=== PATIENT | male | born 1945 | race African-American/Black ===

== ENCOUNTER 2019-03-03 07:44 | Day surgery (SDC) | payer MEDICARE, MEDICAID ==
[~2019-03-03 07:44] MED LIST: ACETAMINOPHEN 500 MG TABLET PO ONE; CEFAZOLIN 2 Gram 2 GM/50 ML BAG IVPB ONE; CELECOXIB 100 MG CAPSULE PO ONE; FAMOTIDINE 20MG TABLET PO ONE; METOCLOPRAMIDE 10 MG TABLET PO ONE; SCOPOLAMINE 1 PATCH TDSY TD ONE; VANCOMYCIN 1GM/200ML PREMIX 1 GM/200 ML PIGGYBACK IVPB ONE
[2019-03-03] MEDS ORDERED: PHENYLEPHRINE HCL 10 MG/ML VIAL IVP ONE (07:45)
[2019-03-03] MEDS ORDERED: MIDAZOLAM HCL 2MG/2ML VIAL IV ONE (07:45)
[2019-03-03] MEDS ORDERED: HYDROMORPHONE HCL 2 MG/ML VIAL IV ONE (07:45)
[2019-03-03] MEDS ORDERED: LIDOCAINE 2% MDV (20MG/ML) 20ML VIAL IV ONE (07:45)
[2019-03-03] MEDS ORDERED: PROPOFOL 10 MG/ML VIAL IV ONE (07:45)
[2019-03-03] MEDS ORDERED: DEXAMETHASONE 4 MG/ML 1ML VIAL IVP ONE (07:45)
[2019-03-03] MEDS ORDERED: ROPIVACAINE HCL (NAROPIN) /PF 5MG/ML 20ML VIAL IV ONE (07:45)
[2019-03-03] MEDS ORDERED: ZOLPIDEM TARTRATE 5 MG TABLET PO PRN (08:28)
[2019-03-03] MEDS ORDERED: BISACODYL 10 MG SUPP RC PRN (08:28)
[2019-03-03] MEDS ORDERED: METOCLOPRAMIDE HCL 10 MG/2 ML VIAL IVP PRN (08:28)
[2019-03-03] MEDS ORDERED: ACETAMINOPHEN W/ CODEINE 300MG/30MG TABLET PO PRN ×2 (08:28)
[2019-03-03] MEDS ORDERED: KETOROLAC 30 MG/ML VIAL IVP PRN (08:28)
[2019-03-03] MEDS ORDERED: ACETAMINOPHEN 325 MG TAB PO PRN (08:28)
[2019-03-03] MEDS ORDERED: ONDANSETRON HCL IV 4 MG/2 ML VIAL IVP PRN (08:28)
[2019-03-03] MEDS ORDERED: DIPHENHYDRAMINE HCL 25 MG CAPSULE PO PRN (08:28)
[2019-03-03] MEDS ORDERED: HYDROCODONE/APAP 5/325MG TABLET PO PRN ×2 (08:28)
[2019-03-03] MEDS ORDERED: AL HYDROX/MAG HYDROX 30ML UD PO PRN (08:28)
[2019-03-03] MEDS ORDERED: ACETAMINOPHEN W/ CODEINE 300MG/60MG TABLET PO PRN (08:28)
[2019-03-03] MEDS ORDERED: TRAMADOL HCL 50 MG TABLET PO PRN ×2 (08:28)
[2019-03-03] MEDS ORDERED: HYDROMORPHONE HCL 2 MG/ML VIAL IM PRN (08:28)
[2019-03-03] MEDS ORDERED: PROMETHAZINE HCL 12.5 MG in 0.9 % SODIUM CHLORIDE 100ML 50 ML IVPB PRN (08:28)
[2019-03-03] MEDS ORDERED: NALOXONE 0.4 MG/1 ML VIAL IVP PRN (08:28)
[2019-03-03] MEDS ORDERED: MAGNESIUM HYDROXIDE 30 ML UDC PO PRN (08:28)
[2019-03-03 08:45] LABS: ABO GROUP O; ANTIBODY SCREEN NEGATIVE (NEGATIVE); RH TYPE POSITIVE
[2019-03-03] MEDS ORDERED: 0.9 % SODIUM CHLORIDE 1000ML 1,000 ML IV ONE (08:45)
[2019-03-03] MEDS ORDERED: BUPIVACAINE 0.5% W/EPI MPF 30 ML VIAL SQ ONE (11:04)
[2019-03-03] MEDS ORDERED: BUPIVACAINE LIPOSOME 266MG/20ML VIAL SQ ONE (11:04)
[2019-03-03] MEDS ORDERED: TRANEXAMIC ACID 1,000 MG/10 ML ML IU ONE (11:04)
[2019-03-03] MEDS ORDERED: TRANEXAMIC ACID 1,000 MG/10 ML ML IVPB ONE (11:05)
[2019-03-03] MEDS ORDERED: VANCOMYCIN HCL 1 GM VIAL IR ONE (11:05)
[2019-03-03] MEDS ORDERED: VANCOMYCIN HCL 1 GM VIAL IU ONE (11:05)
[2019-03-03] MEDS ORDERED: RINGERS SOLUTION,LACTATED 1,000 ML IV ONE (11:18)
[2019-03-03] MEDS ORDERED: DEXTROSE 5 % AND 0.9 % NACL 1,000 ML IV PRN (12:30)
[2019-03-03] MEDS: HYDROCODONE/APAP 7.5/325MG TABLET PO PRN ×2 (14:11→18:29)
[2019-03-03] MEDS: PANTOPRAZOLE SODIUM 40 MG TABLET PO SCH (14:30)
[2019-03-03] MEDS: AMLODIPINE BESYLATE 5MG TAB PO SCH (14:30)
[2019-03-03] MEDS: HYDROMORPHONE HCL 2 MG/ML VIAL IM PRN ×2 (14:38→20:18)
--- NOTE | 2019-03-03 14:55 | Rehab Evaluation ---
Patient Information - Patient Information Diagnosis: R knee DJD Ordered Treatment: PT Evaluate and Treat Status: Initial Evaluation Surgery: Yes (R TKA) Date of Surgery: 03/03/19 Past Medical/Surgical Hx: PAST MEDICAL/SURGICAL HISTORY Past Surgical History CTR BILAT CATARACT EXTRACTION W IOL C SCOPES HYDROCELECTOMY TRIGGER FINGER RELEASE BILATERAL SHOULDER SX PMH - Respiratory Hx Respiratory Disorders Yes Hx of SOB Yes: AT TIMES WITH EXERTION PMH - Cardiovascular Hx Cardiovascular Disorders Yes Hx Hypertension Yes: WELL CONTROLLED WITH MEDS Exercise Tolerance Fair Residual Deficits from CVA Yes: STUTTERS AT TIMES Comment: HYPERLIPIDEMIA. PT ADMITS TO "FORGETTING" TO TAKE HIS B/P MEDS AT TIMES PMH - Neuro Hx Neurological Disorders Yes Hx Cerebrovascular Accident Yes: 2016 PMH - GI Hx Gastrointestinal Disorders Yes Hx Gastroesophageal Reflux Yes: CONTROLLED WITH MEDS PMH - Hx Genitourinary Disorders No PMH - Endocrine Hx Endocrine Disorders No PMH - Musculoskeletal Hx Musculoskeletal Disorders Yes Hx Arthritis Yes: "ALL OVER" PMH - Psych Hx Psychiatric Problems No PMH - Hematology/Oncology Hx Hematology/Oncology No Disorders Premorbid Status: Detail (The patient was independent with all mobility prior to surgery.) Social History: Detail (The patient lives alone in a one story house with 1/2 step and no handrails. The bathroom is equipped with a walk in shower and an elevated toilet. No grab bars are present in the bathroom. The patient has a front wheeled walker.) Precautions: [place], Fall, Other (WBAT on the R LE.) - Time With Patient Total Time Spent With Patient (Min): 30 Treatment Procedures: Detail (Initial Evaluation) Subjective Information - Subjective Information Per Patient (The patient had complaints of level 7 pain. The patient was nauseous after ambulating and vomitted in emesis bag.) Objective Data - Pain Pain Present: Yes Pain Intensity: 7 Pain Scale Used: Numeric (1 - 10) - Mental Status Patient Orientation: Oriented x3 - Visual Perception Appears within normal limits for therapeutic activities - ROM Not within normal limits (R knee AROM was limited as to be expected following surgery. All other LE AROM was WNL.) - Strength/Tone Not within normal limits (The patient's LE strength was not tested but was functional ie: patient was able to lift LE's in and out of bed.) - Bed Mobility Independent (The patient was independent with supine to and from sit transfer.) - Transfers Independent (The patient was independent with sit to and from stand transfer.) - Balance Balance Sitting: Good Balance Standing: Good - Sensation Intact - Gait Detail (The patient ambulated 134 feet with front wheeled walker WBAT on R LE with supervision for safety only.) Therapy Assessment - Therapy Assessment Detail (The patient was independent with bed mobility, transfers and ambulation with assistive device. The patient's knee pain decreased with ambulation. The patient will progress well with mobility.) Problem List - Problem List Physical Therapy Problem List: Detail (Decreased R knee AROM and strength s/p surgery.) Goals - Goals Physical Therapy Goals: 1) The patient will demonstrate good understanding of proper stair technique. 2) The patient will be independent with TKA HEP. Prognosis - Prognosis Good Plan - Plan Physical Therapy Plan: PT 1-2 sessions for gait training and instruction in HEP.
[2019-03-03] MEDS: DOCUSATE SODIUM 100 MG CAPSULE PO SCH (21:12)
[2019-03-03] MEDS: METOPROLOL SUCC 50 MG TABLET PO SCH (21:12)
[2019-03-03] MEDS: VANCOMYCIN 1GM/200ML PREMIX 1 GM/200 ML PIGGYBACK IVPB SCH (21:12)
[2019-03-03] MEDS: FERROUS SULFATE 325 MG TAB PO SCH (21:12)
[2019-03-04] MEDS: HYDROCODONE/APAP 7.5/325MG TABLET PO PRN ×3 (04:24→12:16)
[2019-03-04] MEDS: PANTOPRAZOLE SODIUM 40 MG TABLET PO SCH (06:11)
[2019-03-04 07:13] LABS: HEMATOCRIT 34.3 % (42.0-52.0); HEMOGLOBIN 10.8 gm/dl (14.0-18.0)
[2019-03-04] MEDS: VANCOMYCIN 1GM/200ML PREMIX 1 GM/200 ML PIGGYBACK IVPB SCH (09:39)
[2019-03-04] MEDS: METOPROLOL SUCC 50 MG TABLET PO SCH (09:51)
[2019-03-04] MEDS: AMLODIPINE BESYLATE 5MG TAB PO SCH (09:52)
[2019-03-04] MEDS: DOCUSATE SODIUM 100 MG CAPSULE PO SCH (09:53)
[2019-03-04] MEDS: FERROUS SULFATE 325 MG TAB PO SCH (09:53)
[2019-03-04] MEDS ORDERED: CELECOXIB 100 MG CAPSULE PO SCH (10:00)
[2019-03-04] MEDS ORDERED: RIVAROXABAN 10 MG TABLET PO SCH (10:00)
[2019-03-04] MEDS ORDERED: ATORVASTATIN 20 MG TABLET PO SCH (10:00)
[2019-03-04] MEDS ORDERED: ASPIRIN 81 MG TABEC PO SCH (10:00)
[2019-03-04] MEDS ORDERED: LOSARTAN POTASSIUM 100 MG TABLET PO SCH (10:00)
--- NOTE | 2019-03-04 11:45 | Physical Therapy Tx Note ---
Physical Therapy Tx Note - Treatment Note Total Time Spent With Patient: 25 Physical Therapy Tx Note: Detail (Reveiwed HEP program with patient which he reports no problems or concerns. Pt amb. approx. 120 ft with wheeled walker and went up and down 3 steps with CGA x1. Pt left sitting up in chair awaiting discharge.) Physical Therapy Problem List: Detail (Pt was able to amb. with wheeled walker with no c/o increased pain or problems. Pt able to perform stairs with CGA and virtually independent with all task. At times pt stood independently with out use of walker or A. Pt has good understanding of HEP.) Physical Therapy Goals: 1) The patient will demonstrate good understanding of proper stair technique. 2) The patient will be independent with TKA HEP. Prognosis: Good (Pt has met all goals and is ready for discharge.) Physical Therapy Plan: PT 1-2 sessions for gait training and instruction in HEP.
--- NOTE | 2019-03-04 13:04 | Rehab Evaluation ---
Patient Information - Patient Information Diagnosis: R knee DJD Ordered Treatment: OT Evaluate and Treat Status: Initial Evaluation Surgery: Yes (R TKA) Date of Surgery: 03/03/19 Past Medical/Surgical Hx: PAST MEDICAL/SURGICAL HISTORY Past Surgical History CTR BILAT CATARACT EXTRACTION W IOL C SCOPES HYDROCELECTOMY TRIGGER FINGER RELEASE BILATERAL SHOULDER SX PMH - Respiratory Hx Respiratory Disorders Yes Hx of SOB Yes: AT TIMES WITH EXERTION PMH - Cardiovascular Hx Cardiovascular Disorders Yes Hx Hypertension Yes: WELL CONTROLLED WITH MEDS Exercise Tolerance Fair Residual Deficits from CVA Yes: STUTTERS AT TIMES Comment: HYPERLIPIDEMIA. PT ADMITS TO "FORGETTING" TO TAKE HIS B/P MEDS AT TIMES PMH - Neuro Hx Neurological Disorders Yes Hx Cerebrovascular Accident Yes: 2016 PMH - GI Hx Gastrointestinal Disorders Yes Hx Gastroesophageal Reflux Yes: CONTROLLED WITH MEDS PMH - Hx Genitourinary Disorders No PMH - Endocrine Hx Endocrine Disorders No PMH - Musculoskeletal Hx Musculoskeletal Disorders Yes Hx Arthritis Yes: "ALL OVER" PMH - Psych Hx Psychiatric Problems No PMH - Hematology/Oncology Hx Hematology/Oncology No Disorders Premorbid Status: Detail (The patient was independent with all mobility, meal prep, laundry and home mgmt prior to surgery.) Social History: Detail (The patient lives alone in a one story house with 1/2 step and no handrails at the entrance. The bathroom is equipped with a walk in shower,no seat and an elevated toilet. No grab bars are present in the bathroom. The patient has a front wheeled walker. He reports he will have help on and off over the next few weeks.) Precautions: [place], Fall, Other (WBAT on the R LE.) - Time With Patient Total Time Spent With Patient (Min): 35 Treatment Procedures: Detail (OT eval low complexity) Subjective Information - Subjective Information Per Patient Objective Data - Pain Pain Present: Yes (10/28) - Mental Status Patient Orientation: Oriented x3 - Visual Perception Appears within normal limits for therapeutic activities - ROM Within normal limits (Gabriel UE AROM WNL) - Strength/Tone Within normal limits (Gabriel UE strength WNL) - Coordination Appears within normal limits for therapeutic activities - Bed Mobility Independent (Ind with supine to sit) - Transfers Independent (Ind with sit to stand from EOB) - Balance Balance Sitting: Good Balance Standing: Good - Sensation Intact - ADL's/IADL's Detail (Pt educated and able to demonstrate learning of modified LE dressing techniques including doffing slipper socks and donning maribel sock (with assist), sweatpants and slip on shoes. Reviewed kitchen and shower safety and modifications, pt verbalized understanding.) Therapy Assessment - Therapy Assessment Detail (Pt is Ind with modified LE dressing techniques.) Problem List - Problem List Physical Therapy Problem List: Detail (Pt was able to amb. with wheeled walker with no c/o increased pain or problems. Pt able to perform stairs with CGA and virtually independent with all task. At times pt stood independently with out use of walker or A. Pt has good understanding of HEP.) Occupational Therapy Problem List: Detail (No current IP OT problems identified.) Goals - Goals Physical Therapy Goals: 1) The patient will demonstrate good understanding of proper stair technique. 2) The patient will be independent with TKA HEP. Occupational Therapy Goals: No current IP OT goals identified. Prognosis - Prognosis Good Plan - Plan Physical Therapy Plan: PT 1-2 sessions for gait training and instruction in HEP. Occupational Therapy Plan: No further IP OT recommended. Thank you for this referral.
--- NOTE | 2019-03-11 06:00 | Operative Note ---
DATE OF SURGERY: 03/03/2019 PREOPERATIVE DIAGNOSIS: End-stage right knee arthrosis. POSTOPERATIVE DIAGNOSIS: End-stage right knee arthrosis. OPERATION: Right total knee arthroplasty. SURGEON: Sreekanth Masters MD ANESTHESIA: Spinal. COMPLICATIONS: None. ESTIMATED BLOOD LOSS: Minimal. OPERATIVE FINDINGS: [id number] medial compartment arthrosis. COMPONENTS PLACED: A 2 g vancomycin cemented C[employer] Journey II Oxinium total knee arthroplasty system, size 8 femoral component, a size 7 tibial baseplate, a 9 mm thick tibial poly insert, and 35 mm cemented patellar component. INDICATIONS: This is a 73-year-old male who has had persistent pain and dysfunction in the knee for several years. Failed nonoperative treatment. Scheduled for procedure above. I explained all risks and benefits in detail for the diagnosis and procedure including but not limited to infection, nerve injury, vessel injury, persistent pain, stiffness, numbness, tingling in the knee, periprosthetic fracture, need for resection arthroplasty if components become infected or loosen, nerve injury, vessel injury, blood clot and need for anticoagulation to prevent blood clots and risks associated with these medications, and need for further procedures. All his questions were answered. Rehab course was outlined. He agreed to proceed. PROCEDURE: The patient brought to the OR, placed in the supine position, prepped for surgery. Spinal anesthesia induced. The right lower extremity and knee were prepped and draped in sterile fashion. Right knee prepped again with Chloraprep after it was draped. Intraoperative timeout was performed. Next, the leg was exsanguinated with Esmarch. The knee was flexed. There was no tourniquet used during the entire case. We used Aquamantys, cauterizing all layers of approach. Next, we infiltrated the anterior incision with 0.5% Marcaine with epinephrine, tranexamic acid, Exparel mixture. Next, skin and subcutaneous tissue dissected down to the capsule. Incised the capsule medially around the medial border of the patella to the tibial tubercle. Incised the vastus medialis in line with its fibers in a mid vastus approach. Everted the patella, partially resected the retropatellar fat pad, elevated the capsule subperiosteally and medially, and again performed Aquamantys carefully cauterizing all layers of tissue. It was a tourniquetless procedure. Next, then flexed the knee. He had [id number] medial compartment arthrosis. Drilled intracondylar drill hole, inserted the intramedullary guide viv, 6-degree cutting block. Aligned off the distal femoral condyles, pinned it in the +2 mm position, and then cut the distal femoral condyle. Next, took the sizing jig, placed a sizing jig on the distal femoral condyle, and sized it to be right on a size 7. Through the previously placed pin holes, we placed the size 7 cutting jig. We dialed the anterior cut so it would come out flush without notching. We cut that cut. It was a good flush cut. We then cut the remaining chamfer cuts in the usual fashion. Placed a trial 7 component, it fit nicely, centered it, pinned it, removed osteophytes, inserted the femoral resection collet, reamed out and box osteotomed out cruciate bone block. Next, then attention was turned to the tibia. Brought in the external alignment jig, spikes in the tubercular groove 2 fingerbreadths distally. Referenced a 7 mm cut off the higher lateral plateau. We pinned the cutting jig provisionally in place. We rechecked alignment of cutting jig with drop viv on the tibial anatomic axis, cross-pinned it completing its fixation, and cut the tibia. We removed osteophytes off the posterior femoral condyles. Checked the flexion/extension gaps. They were symmetric with a 9 mm thick poly insert, 2-3 mm of varus/valgus laxity in flexion/extension. Overall alignment with cuts in extension and anatomic valgus orientation with alignment viv centered on the hip joint and ankle joint. Next, took in knee in flexion and sized the tibial baseplate size 7 and replaced all trial components. Set the rotation tibial baseplate again in extension using the alignment viv centered on hip joint and ankle joint. Marked electrocautery harvey on the tibial cortex off the laser harvey of the tibial baseplate. Attention was turned to the patella, and measured the patella. Set the cutting jig to allow for a 9 mm thick poly insert. Cut the patella, re-measured, it was right on our premeasured width. Next, we sized the patella to be 35 mm, medialized as much as possible, drilled 3 peg holes, chamfered off lateral patellar facet, did a trial range of motion. The patella tracked nicely handsfree with full extension, flexion to 134 degrees, again symmetric flexion/extension gaps. Now took the knee into flexion, mixed cement, seated the tibial baseplate off the previously placed electrocautery harvey, pinned it in place, reamed out, and keel punched the keel hole. We placed a bone plug in the femoral canal hole. Irrigated copiously with pulse lavage and antibiotic solution. Changed gloves, brought in clean sheet. Placed the drill bit in the tibial keel hole. Then precoated both surfaces and packed down the tibial surface first and then the femoral component removing excess cement, placed a trial tibial poly liner. Held the knee in extension and clamped down the patella component removing excess cement until the cement hardened. Next, then took the knee into flexion, distracted the knee with bone hook and sponge. Removed the trial tibial component, removed any excess cement around the edges of the components. Irrigated copiously. We then cauterized again with our Aquamantys in the posterior capsule. We then injected our 0.5% Marcaine with epinephrine, tranexamic acid, and Exparel mixture in the posterior capsule and medially out to the periosteum working out deep to superficial. Next, inserted the real tibial poly insert and verified it was interlocked. We found our range of motion to be the same. Irrigated copiously and then injected a bolus to the more superficial subcutaneous layer. We closed the capsule and vastus medialis split in flexion using a running #2 quill suture, closed the skin deep with 2-0 Vicryl securely and placed a ZEINAB dressing. Tolerated the procedure well. No intraoperative complications. Sponge, needle, and blade counts correct. Sent to recovery stable, neurovascularly intact. He will be discharged to the floor. Likely discharge tomorrow home therapy nurse. SIMONA
== END 2019-03-04 12:55 | disposition home health service (06) ==
LOC: SUR 07:44 → MEDSURG 13:03 → SUR 03-04 12:55
PROVIDERS: ATTEND Orthopaedic Surgery
DX: M17.11 Unilateral primary osteoarthritis, right knee (principal); I10 Essential (primary) hypertension; E78.00 Pure hypercholesterolemia, unspecified; K21.9 Gastro-esophageal reflux disease without esophagitis; M19.90 Unspecified osteoarthritis, unspecified site; I69.823 Fluency disorder following other cerebrovascular disease; Z86.73 Personal history of transient ischemic attack (TIA), and cerebral infarction without residual deficits
CPT/HCPCS: 27447; 01402; 64447; 85018; 85014; 86900; 86901; 86850; 94760; 76942; C1776 ×3; J1885; J3370 ×3; J1170; J0690; C9290; J2795; J2370; J7030; J7042; J7120